=== PATIENT | female | born 1945 | race Two or more races ===

== ENCOUNTER 2019-05-10 11:42 | Emergency (ER) | payer OTHER ==
[~2019-05-10] VITALS: Ht 157.5 cm; Wt 58.5 kg
[~2019-05-10 11:42] MED LIST: ASA81 MG PO; ATENOLOL50 MG PO; CRESTOR5 MG PO; HYZAAR 100-251 UDTAB PO; [UNRECOGNIZED DRUG - OTHER]; [UNRECOGNIZED DRUG - OTHER]
[2019-05-10] MEDS ORDERED: NORVASC2.5 M1 PO (11:52)
[2019-05-10] MEDS ORDERED: LIPITOR20 MG (11:52)
[2019-05-10] MEDS ORDERED: ZOLOFT50 MG PO (11:53)
[2019-05-10] MEDS ORDERED: JENTADUETO 2.51 EAC2 PO (11:53)
[2019-05-11] MEDS ORDERED: APETIGEN P12.5 MG/15 PO (10:32)
[2019-05-11] MEDS ORDERED: MUCINEX FAST-M180 M2 PO (10:32)
== END 2019-05-11 10:49 | disposition home or self-care (01) ==
LOC: ER 11:42
DX: E87.1 Hypo-osmolality and hyponatremia (principal); E86.0 Dehydration; E87.6 Hypokalemia; R42 Dizziness and giddiness

== ENCOUNTER 2020-03-06 11:36 | Emergency (ER) | payer OTHER ==
[~2020-03-06] VITALS: Ht 157.5 cm; Wt 55.8 kg
[~2020-03-06 11:36] MED LIST changes: +APETIGEN P12.5 MG/15 PO; +JENTADUETO 2.51 EAC2 PO; +LIPITOR20 MG; +MUCINEX FAST-M180 M2 PO; +NORVASC2.5 M1 PO; +ZOLOFT50 MG PO
== END 2020-03-06 20:58 | disposition home or self-care (01) ==
LOC: ER 11:36
DX: R53.1 Weakness (principal); S90.111A Contusion of right great toe without damage to nail, initial encounter; M79.674 Pain in right toe(s); I12.9 Hypertensive chronic kidney disease with stage 1 through stage 4 chronic kidney disease, or unspecified chronic kidney disease; E11.22 Type 2 diabetes mellitus with diabetic chronic kidney disease; N18.4 Chronic kidney disease, stage 4 (severe); X58.XXXA Exposure to other specified factors, initial encounter; Y93.89 Activity, other specified; Y92.89 Other specified places as the place of occurrence of the external cause; Y99.8 Other external cause status; Z79.84 Long term (current) use of oral hypoglycemic drugs; Z03.818 Encounter for observation for suspected exposure to other biological agents ruled out

== ENCOUNTER 2024-05-20 12:06 | Emergency (ER) | payer OTHER ==
[~2024-05-20] VITALS: Ht 165.1 cm; Wt 47.6 kg
[2024-05-20] MEDS ORDERED: CHILDREN'S ASPI81 MG PO (13:36)
[2024-05-20] MEDS ORDERED: LOPRESSOR25 MG PO (13:37)
[2024-05-20] MEDS ORDERED: PLAVIX75 MG PO (13:37)
[2024-05-20] MEDS ORDERED: NASAL MIST126 ML (13:37)
[2024-05-20] MEDS ORDERED: LORazepam 1 MG TABLET PO ONE (13:45)
== END 2024-05-20 14:11 | disposition home or self-care (01) ==
LOC: ER 12:08 → EDBD 12:08 → ER 12:08
DX: I10 Essential (primary) hypertension (principal); F41.9 Anxiety disorder, unspecified; I11.0 Hypertensive heart disease with heart failure; E11.9 Type 2 diabetes mellitus without complications; Z79.84 Long term (current) use of oral hypoglycemic drugs

== ENCOUNTER 2024-11-13 10:41 | Emergency (ER) | payer OTHER ==
[~2024-11-13] VITALS: Ht 152.4 cm; Wt 48.1 kg
[~2024-11-13 10:41] MED LIST changes: +CHILDREN'S ASPI81 MG PO; +LOPRESSOR25 MG PO; +NASAL MIST126 ML; +PLAVIX75 MG PO
[2024-11-13] MEDS ORDERED: CITALOPRAM HBR10 MG (11:08)
[2024-11-13] MEDS ORDERED: TOPROL XL100 M1 (11:09)
[2024-11-13] MEDS ORDERED: ZETIA10 MG (11:09)
[2024-11-13] MEDS ORDERED: GLIMEPIRIDE2 M1 PO (11:10)
[2024-11-13] MEDS ORDERED: ATACAND32 MG (11:11)
[2024-11-13] MEDS ORDERED: AZOR 5-40 MG T1 EACH (11:11)
[2024-11-13] MEDS ORDERED: ATIVAN0.5 M1 PO (11:12)
[2024-11-13] MEDS ORDERED: LABETALOL HCL 20MG/4ML SYRINGE IV ONE (11:30)
[2024-11-13 12:25] LABS: BASO % 1.2 % (0.1-1.2); EOS # 0.03 (0.04-0.54); EOS % 0.6 % (0.7-7.0); LYMPH # 0.73 (1.18-3.74); LYMPH % 14.1 % (19.3-53.1); MEAN PLATELET VOLUME 9.50 fl (9.4-12.4); MONO # 0.44 (0.24-0.82); MONO % 8.5 % (4.7-12.5); NEUT # 3.88 (1.56-6.13); NEUT % 75.0 % (34.0-71.1); RED CELL DISTRIBUTION WIDTH 14.6 % (11.6-14.4)
[2024-11-13 13:04] LABS: ALT/SGPT 32.0 U/L (12-78); AST/SGOT 27.0 U/L (15-37); BILIRUBIN TOTAL 0.36 mg/dL (0.3-1.2); BUN CREA RATIO 23.0 (7.0-25.0); CREATININE SERUM 0.79 mg/dL (0.55-1.02); GFR 69.85; GLOBULINA 3.5 G/DL (2.4-3.5); GLUCOSE FASTING 130.0 mg/dL (65-100); LDH 196.0 U/L (84-246); OSMOLALITY SERUM 274.0 MOSM/KG (275-295); PHOSPHOKINASE CREATININE 115.0 U/L (26-192)
== END 2024-11-13 16:23 | disposition home or self-care (01) ==
LOC: ER 10:41
PROVIDERS: Emergency Medicine
DX: R07.89 Other chest pain (principal); I10 Essential (primary) hypertension; Z95.1 Presence of aortocoronary bypass graft